=== PATIENT | female | born 1975 | race Caucasian/White ===

== ENCOUNTER → 2022-10-15 08:04 | Outpatient (BNVA) | payer OTHER, SELFPAY | PROVIDERS: PCP Physician Assistant Medical; Visit Provider Internal Medicine Rheumatology | DX: M32.9 Systemic lupus erythematosus, unspecified (principal); M79.7 Fibromyalgia; Z79.60 Long term (current) use of unspecified immunomodulators and immunosuppressants | CPT/HCPCS: 99212 ==

== ENCOUNTER 2022-10-15 08:45 | Outpatient (REF) | payer OTHER, SELFPAY ==
[2022-10-15 10:39] LABS: MANUAL DIFF FLAG NO
[2022-10-15 10:45] LABS: Basophils Percent Auto 0.2 % (0-2); Eosinophils Percent Auto 0.4 % (0-4); Hematocrit 39.5 % (37.0-47.0); Hemoglobin 13.4 g/dl (12.0-16.0); Imm Gran Abs Auto 0.02 X10*3/uL (0.00-0.03); Imm Gran Pct Auto 0.2 % (0.0-0.4); Lymphocytes Absolute Auto 1.6 X10*3/uL (1.2-4.9); Lymphocytes Percent Auto 18.5 % (20-40); Mean Corpuscular HGB Conc 33.9 g/dl (31.0-35.0); Mean Corpuscular Hemoglobin 33.8 pg (27.0-33.0); Mean Corpuscular Volume 99.5 fL (80.0-98.0); Mean Platelet Volume 10.1 fL (9.4-12.3); Monocytes Absolute Auto 0.5 X10*3/uL (0.1-1.2); Monocytes Percent Auto 5.6 % (2-11); Neutrophils Absolute Auto 6.3 x10*3/uL (2.0-8.3); Neutrophils Percent Auto 75.1 % (45-73); Platelet Count 275 X10*3/uL (160-400); Red Blood Count 3.97 X10*6/uL (4.20-5.50); Red Cell Distribution Width 11.9 % (11.0-16.0); White Blood Count 8.4 X10*3/uL (4.8-10.8)
[2022-10-15 10:55] LABS: C Reactive Protein 0.14 mg/dL (< or = 0.50)
[2022-10-15 11:22] LABS: Erythrocyte Sedimentation Rate 7 MM/HR (0-20)
[2022-10-17 17:04] LABS: Anti DNA DS Antibody 5 IU/mL; SM/Ribonucleoprotein Ab <1.0 NEG AI (<1.0 NEG); Smith Protein <1.0 NEG AI (<1.0 NEG)
[2022-10-21 04:44] LABS: Complement C3 80 mg/dL (83-193)
== END 2022-10-15 08:46 | disposition home or self-care (01) ==
LOC: HO.10HDL 08:45
PROVIDERS: Visit Provider Internal Medicine Rheumatology
DX: M32.9 Systemic lupus erythematosus, unspecified (principal); M79.7 Fibromyalgia; Z79.60 Long term (current) use of unspecified immunomodulators and immunosuppressants; Z79.899 Other long term (current) drug therapy
CPT/HCPCS: 36415; 85025; 85652; 86140; 86160; 86225; 86235

== ENCOUNTER 2023-01-13 10:54 | Outpatient (AMB) | payer OTHER, SELFPAY ==
[2023-01-13 10:58] VITALS: BP 120/80; PULSE 81; TEMP 37; O2SAT 98; BMI 27.4
--- NOTE | 2023-01-13 10:58 | MHC.OFFVIS ---
Intake Vital Signs 01/13/23 10:58 Height 5 ft 5 in Weight 164 lb 10.965 oz BMI 27.4 BP 120/80 Blood Pressure Location Lt brachial Position Sitting Pulse 81 Pulse Source Pulse Oximeter Temp 98.6 F Temp Source Skin Pulse Oximetry (%) 98 Oxygen Delivery Method Room Air Intake Visit Reasons: SLE Intake Note: Here for SLE follow up. Sack Keeper Required: No Accompanied by: Significant Other Allergies sulfamethoxazole [From Bactrim] Allergy (Severe, Verified 01/13/23 10:58) Hives trimethoprim [From Bactrim] Allergy (Severe, Verified 01/13/23 10:58) Hives amoxicillin [From Augmentin] Allergy (Intermediate, Verified 01/13/23 10:58) Hives clavulanic acid [From Augmentin] Allergy (Intermediate, Verified 01/13/23 10:58) Hives clindamycin Allergy (Intermediate, Verified 01/13/23 10:58) RASH ALL OVER BODY Medication List - Last Reconciled 01/13/23 by Denys Galarza MD albuterol sulfate 90 mcg/actuation (ProAir HFA) 2 puffs inhalation Q6H PRN alprazolam 0.5 mg PO TID PRN amlodipine 5 mg PO DAILY atorvastatin 10 mg PO BEDTIME azathioprine 150 mg (3 x 50 mg) PO DAILY buspirone 15 mg PO TID desvenlafaxine succinate ER (Pristiq) 100 mg PO DAILY fluticasone propion-salmeterol 250-50 mcg/dose (Wixela Inhub) 1 ea inhalation BID gabapentin One cap twice a day and two at night orally hydroxychloroquine (Plaquenil) 200 mg PO BID lamotrigine 50 mg PO BID levonorgestrel (Mirena) intrauterine metformin ER 500 mg PO DAILY mirtazapine 15 mg PO BEDTIME omeprazole 20 mg PO DAILY HPI HPI Comments History of Present Illness Details The patient presents with her boyfriend for evaluation of her lupus and fibromyalgia. She has been having intermittent pains in the wrists, shoulders, right elbow, and the knees. None of the joints are swollen. Pains tend to migrate and tend to come and go. She does get occasional hives but no persistent rash. She remains on hydroxychloroquine 200 b.i.d., azathioprine 50 mg t.i.d., and as needed ibuprofen [id number]. She is on 300 mg twice a day gabapentin 600 mg at night. She does not think the gabapentin gives any sedation. She also remains on alprazolam, Pristiq, mirtazapine, BuSpar, and lamotrigine from her psychiatrist. Anxiety and depression seem to be stable with current treatment. [facility] Medical History (Updated 01/13/23 @ 11:23 by Denys Galarza MD) Anxiety Cervical radiculopathy Diabetes Dysplasia of cervix Fibromyalgia GERD (gastroesophageal reflux disease) Long-term use of immunosuppressant medication SLE (systemic lupus erythematosus) Tobacco abuse Family History Father HTN (hypertension) Paternal Grandfather HTN (hypertension) Paternal Uncle HTN (hypertension) Social History Alcohol intake: never Patient Tobacco Use Status: Current everyday Tobacco user Review of Systems Const Details: Some fatigue at times. Negative for appetite change, weight change, fever, chills, malaise Eyes Details: Negative for vision change, dry eyes,headaches and dizziness ENT Details: Negative for hearing change, tinnitus, oral ulcer, nose bleeds and oral dryness. Card Details: Negative chest pain, edema and syncope Resp Details: Negative for SOB, cough and wheezing GI Details: Negative indigestion/heartburn, nausea, abdominal pain, bowel changes, diarrhea, constipation and bloody stool. Skin/Breast Details: Occasional hives. Negative for itching, rash, Raynaud's symptoms, sun sensitivity, and skin cancer Psych Details: anxiety, depression stable with current treatment. Manjit/Lymph Details: Negative for excessive bruising or bleeding. Physical Exam Vital Signs: Last Vital Signs Temp 98.6 F 01/13/23 10:58 Pulse 81 01/13/23 10:58 BP 120/80 01/13/23 10:58 Pulse Ox 98 01/13/23 10:58 Oxygen Delivery Method Room Air 01/13/23 10:58 BMI result Body Mass Index 27.4 APPEARANCE: Patient in no acute distress EYES no redness, pupils equal and reactive to light, eyelids normal EARS:? External ear normal, canal clear and tympanic membrane normal. NOSE/SINUS:? Airflow through both nares, no nasal discharge, no bleeding THROAT:? Oral mucosa moist, no ulcerations NECK:? No thyromegaly or masses, no adenopathy, trachea midline. HEART:? Regulrar rhythm, S1-S2 heard, no murmurs, rubs or gallops. LUNG:? Clear to percussion and auscultation ABD:? Normal bowel sounds, no organomegaly, masses or tenderness. EXTREMITIES:? No edema, no calf tenderness, normal peripheral pulses. NEURO:? Oriented and alert x3.? No focal weakness.? Reflexes symmetric.? Gait normal. SKIN:? No inflammatory or neoplastic lesions.? Normal color and turgor JOINT EXAM:?? Cervical Spine:.? Full range of motion with mild pain at the extremes of motion.? There is some mild cervical muscle tenderness. Thoracic Spine:.? No scoliosis.? No tenderness on palpation. Lumbar Spine:.? Alignment normal.? Full range of motion with mild pain at the extremes.? No tenderness. Chest Wall:? No tenderness, swelling, increased warmth or erythema. Hands:.? Normal pain-free range of motion without tenderness, swelling, increased warmth or erythema. Able to make a full fist and has a good top spotter strength. Wrists:? Normal pain-free range of motion with mild tenderness but no she swelling, increased warmth or erythema. Elbows: Left: Normal pain-free range of motion without tenderness, swelling, increased warmth or erythema. Right: Slight pain at full extension. There is moderate lateral epicondylar tenderness but no tenderness or swelling over the joint space. Shoulders:? Full range of motion with slight discomfort at the extremes of motion.? There is some mild trapezial tenderness but no tenderness elsewhere.? No adenopathy, weakness, swelling, increased warmth or erythema. Hips:.? Full range of motion without pain. Hip bursa:.? Mild trochanteric tenderness. Knees: Normal pain-free range of motion with slight medial tenderness; no swelling, increased warmth or erythema.? There is no effusion or crepitation Ankles:? Normal pain-free range of motion with slight tenderness but no swelling, increased warmth or erythema. Feet:? Normal pain-free range of motion with some tenderness in the instep without swelling.? Elsewhere there is no swelling, increased warmth or erythema. Tender points:? Mild tenderness to digital palpation at the? trapezius, second rib, lateral epicondyle, knees, greater trochanter area bilaterally. ? Results Reviewed Results Reviewed: Laboratory Tests 10/15/22 10/15/22 08:50 08:50 C-Reactive Protein 0.14 Double Strand DNA Ab 5 H Complement C3 80 L Complement C4 12 L Laboratory Tests 10/15/22 10/15/22 08:50 08:50 WBC 8.4 Hgb 13.4 Plt Count 275 ESR 7 Lab work from [place]: 10/10/2022: Creatinine 0.73, A1c 5.1, urine microalbumin less than 6.8 Assessment & Plan Assessment & Plan (1) Long-term use of immunosuppressant medication: Code(s): Z79.60 - [employer] (current) use of unspecified immunomodulators and immunosuppressants (2) Fibromyalgia: Code(s): M79.7 - Fibromyalgia (3) SLE (systemic lupus erythematosus): Comment: 2014: arthalgias, rash: pos JADA, anti DNA. low C3, C4. Neg Sjogrens AB, anti CLARE. hydroxychloroquine started ~ 2014 - Eye exam [place] 02/03, 10/05, 09/07, 01/07 Joint pain/rash. Azathioprine added, 2017 Code(s): M32.9 - Systemic lupus erythematosus, unspecified Plan Patient again has some scattered arthralgias without signs of an inflammatory joint disease. She does have hives, this of course could be a manifestation of SLE but it happens independent of that disease process as well. She has many tender points as before so I think much of her pain currently is from fibromyalgia. I encouraged light aerobic activity. We will check CBC, CMP, inflammatory markers, complement levels and anti DNA today. Also we will check urine for protein excretion. The medications will remain the same. She is getting the gabapentin prescribed through her primary doctor and that seems appropriate. I will see her again in April. Coding Level of Care Code Est Pt Level 3 (94603) Diagnoses Long-term use of immunosuppressant medication Z79.60 Fibromyalgia M79.7 SLE (systemic lupus erythematosus) M32.9
== END 2023-01-13 11:25 | disposition home or self-care (01) ==
PROVIDERS: PCP Physician Assistant Medical; Visit Provider Internal Medicine Rheumatology
DX: Z79.60 Long term (current) use of unspecified immunomodulators and immunosuppressants (principal); M79.7 Fibromyalgia; M32.9 Systemic lupus erythematosus, unspecified
CPT/HCPCS: 99213

== ENCOUNTER → 2023-01-13 10:54 | Outpatient (BNVA) | payer OTHER, SELFPAY | PROVIDERS: PCP Physician Assistant Medical; Visit Provider Internal Medicine Rheumatology | DX: M32.9 Systemic lupus erythematosus, unspecified (principal); M79.7 Fibromyalgia; Z79.60 Long term (current) use of unspecified immunomodulators and immunosuppressants | CPT/HCPCS: 99212 ==

== ENCOUNTER 2023-01-13 11:29 | Outpatient (REF) | payer OTHER, SELFPAY ==
[2023-01-13 13:17] LABS: MANUAL DIFF FLAG NO
[2023-01-13 13:22] LABS: Basophils Percent Auto 0.2 % (0-2); Eosinophils Percent Auto 0.4 % (0-4); Hematocrit 40.8 % (37.0-47.0); Imm Gran Abs Auto 0.02 X10*3/uL (0.00-0.03); Imm Gran Pct Auto 0.2 % (0.0-0.4); Mean Corpuscular HGB Conc 34.3 g/dl (31.0-35.0); Mean Corpuscular Hemoglobin 33.8 pg (27.0-33.0); Mean Corpuscular Volume 98.6 fL (80.0-98.0); Monocytes Absolute Auto 0.5 X10*3/uL (0.1-1.2); Monocytes Percent Auto 5.8 % (2-11); Neutrophils Absolute Auto 5.6 x10*3/uL (2.0-8.3); Neutrophils Percent Auto 69.4 % (45-73); Platelet Count 299 X10*3/uL (160-400); Red Blood Count 4.14 X10*6/uL (4.20-5.50); Red Cell Distribution Width 12.3 % (11.0-16.0); White Blood Count 8.1 X10*3/uL (4.8-10.8)
[2023-01-13 13:51] LABS: Alanine Aminotransferase 12 U/L (0-31); Albumin Level 4.2 g/dL (3.5-5.0); Alkaline Phosphatase 49 U/L (39-117); Anion Gap 11 (12-20); Aspartate Amino Transferase 14 U/L (5-31); Bilirubin Total 0.5 mg/dL (0.0-1.0); Blood Urea Nitrogen 6 mg/dL (9-16); C Reactive Protein < 0.10 mg/dL (< or = 0.50); Calcium 9.5 mg/dL (8.4-10.2); Carbon Dioxide 25 mmol/L (22-29); Chloride 107 mmol/L (96-108); Estimated Glomerular Filt Rate > 60; Glucose Random 103 mg/dL (60-115); Potassium 4.2 mmol/L (3.3-5.1); Sodium 139 mmol/L (135-145)
[2023-01-13 14:05] LABS: Erythrocyte Sedimentation Rate 9 MM/HR (0-20)
[2023-01-13 14:36] LABS: Creatinine Urine 28.85 mg/dL; Total Protein Urine Random < 7 mg/dL (<12)
[2023-01-14 14:48] LABS: Complement C3 104 mg/dL (83-193)
[2023-01-15 13:33] LABS: Anti DNA DS Antibody 5 IU/mL
== END 2023-01-13 11:30 | disposition home or self-care (01) ==
LOC: HO.10HDL 11:29
PROVIDERS: Visit Provider Internal Medicine Rheumatology
DX: M32.9 Systemic lupus erythematosus, unspecified (principal); M79.7 Fibromyalgia; Z79.60 Long term (current) use of unspecified immunomodulators and immunosuppressants
CPT/HCPCS: 36415; 80053; 84156; 85025; 85652; 86140; 86160; 86225

== ENCOUNTER 2023-05-06 09:02 | Outpatient (AMB) | payer OTHER, SELFPAY ==
--- NOTE | 2023-05-06 09:08 | A.OFFVIS_ITS ---
Intake Vital Signs 05/06/23 09:09 Height 5 ft 5 in Weight 160 lb 11.472 oz BMI 26.7 BP 110/70 Blood Pressure Location Lt brachial Position Sitting Pulse 86 Pulse Source Pulse Oximeter Temp 97.9 F Temp Source Skin Pulse Oximetry (%) 96 Oxygen Delivery Method Room Air Intake Visit Reasons: SLE Intake Note: Patient last seen 01/13/23, presents today for follow up and test results. c/o worsening joint pains since cold weather. Mobile Application Tester Required: No Accompanied by: Friend Allergies sulfamethoxazole [From Bactrim] Allergy (Severe, Verified 05/06/23 09:09) Hives trimethoprim [From Bactrim] Allergy (Severe, Verified 05/06/23 09:09) Hives amoxicillin [From Augmentin] Allergy (Intermediate, Verified 05/06/23 09:09) Hives clavulanic acid [From Augmentin] Allergy (Intermediate, Verified 05/06/23 09:09) Hives clindamycin Allergy (Intermediate, Verified 05/06/23 09:09) RASH ALL OVER BODY Medication List - Last Reconciled 05/06/23 by Denys Galarza MD albuterol sulfate 90 mcg/actuation (ProAir HFA) 2 puffs inhalation Q6H PRN alprazolam 0.5 mg PO TID PRN amlodipine 5 mg PO DAILY atorvastatin 10 mg PO BEDTIME azathioprine 150 mg (3 x 50 mg) PO DAILY buspirone 15 mg PO TID desvenlafaxine succinate ER (Pristiq) 100 mg PO DAILY fluticasone propion-salmeterol 250-50 mcg/dose (Wixela Inhub) 1 ea inhalation BID gabapentin One cap twice a day and two at night orally hydroxychloroquine (Plaquenil) 200 mg PO BID lamotrigine 50 mg PO BID levonorgestrel (Mirena) intrauterine metformin ER 500 mg PO DAILY mirtazapine 15 mg PO BEDTIME omeprazole 20 mg PO DAILY HPI HPI Comments History of Present Illness Details The patient returns today with her for evaluation of her lupus and fibromyalgia. She remains on hydroxychloroquine 200 mg b.i.d., azathioprine 50 mg t.i.d., and occasional ibuprofen and or acetaminophen. She takes the gabapentin 300 mg capsules twice a day and 2 at night for fibromyalgia. She has been noticing some wrist pain for 2-3 months. This is accompanied by hand paresthesias at night. Occasionally she gets the hand paresthesias in the daytime. There is occasional pain in the fingers and in the knees. Sometimes she has taken prednisone and that seems to help the pains at times. She does not seem to have any other paresthesias currently. There are no problems with oral ulcers, skin rash, chest pain, abdominal pain, or joint swelling. She last had an eye exam to monitor her hydroxychloroquine use back in December. [facility] Medical History (Updated 05/06/23 @ 13:21 by Denys Galarza MD) SLE (systemic lupus erythematosus) Anxiety Diabetes GERD (gastroesophageal reflux disease) Tobacco abuse Cervical radiculopathy Long-term use of immunosuppressant medication Fibromyalgia Dysplasia of cervix Family History Father HTN (hypertension) Paternal Grandfather HTN (hypertension) Paternal Uncle HTN (hypertension) Social History (Updated 05/06/23 @ 09:11 by KAVITA Morales) Alcohol intake: never Patient Tobacco Use Status: Current everyday Tobacco user Cigarettes Per Day: 15 Review of Systems Const Details: Negative for appetite change, weight change, fever, chills, malaise and fatigue Eyes Details: Negative for vision change, dry eyes,headaches and dizziness ENT Details: Negative for hearing change, tinnitus, oral ulcer, nose bleeds and oral dryness. Card Details: Negative chest pain, edema and syncope Resp Details: Negative for SOB, cough and wheezing GI Details: Negative indigestion/heartburn, nausea, abdominal pain, bowel changes, diarrhea, constipation and bloody stool. Skin/Breast Details: Raynaud's symptoms a bit more comonin the colder weather Negative for itching, rash, hives, sun sensitivity, and skin cancer Neuro Details: Hand numbness as noted above. Negative for epilepsy, palsy, stroke, changes in speech, and weakness . Psych Details: anxiety, depression stable at present. Endo Details: Negative for polyuria and polydypsia Manjit/Lymph Details: Negative for excessive bruising or bleeding. Physical Exam Vital Signs: Last Vital Signs Temp 97.9 F 05/06/23 09:09 Pulse 86 05/06/23 09:09 BP 110/70 05/06/23 09:09 Pulse Ox 96 12/20/23 09:09 Oxygen Delivery Method Room Air 05/06/23 09:09 BMI result Body Mass Index 26.7 APPEARANCE: Patient in no acute distress EYES no redness, pupils equal and reactive to light, eyelids normal EARS:? External ear normal, canal clear and tympanic membrane normal. NOSE/SINUS:? Airflow through both nares, no nasal discharge, no bleeding THROAT:? Oral mucosa moist, no ulcerations NECK:? No thyromegaly or masses, no adenopathy, trachea midline. HEART:? Regulrar rhythm, S1-S2 heard, no murmurs, rubs or gallops. LUNG:? Clear to percussion and auscultation ABD:? Normal bowel sounds, no organomegaly, masses or tenderness. EXTREMITIES:? No edema, no calf tenderness, normal peripheral pulses. NEURO:? Oriented and alert x3.? No focal weakness.? Reflexes symmetric.? Gait normal. SKIN:? No inflammatory or neoplastic lesions.? Normal color and turgor JOINT EXAM:?? Cervical Spine:.? Full range of motion with mild pain at the extremes of motion.? There is some mild cervical muscle tenderness. Thoracic Spine:.? No scoliosis.? No tenderness on palpation. Lumbar Spine:.? Alignment normal.? Full range of motion with mild pain at the extremes.? No tenderness. Chest Wall:? No tenderness, swelling, increased warmth or erythema. Hands:.? Normal pain-free range of motion without tenderness, swelling, increased warmth or erythema. There are no objective signs of Raynaud's disease, no sensory loss or thenar atrophy. Wrists:? There is mild pain with the degrees flexion extension with some minimal ventral tenderness without swelling. No redness or warmth. Negative Phalen's and Tinel signs. Elbows: Left: Normal pain-free range of motion without tenderness, swelling, increased warmth or erythema. Right: Slight pain at full extension. There is mild lateral epicondylar tenderness but no tenderness or swelling over the joint space. Shoulders:? Full range of motion with slight discomfort at the extremes of motion.? There is some mild trapezial tenderness but no tenderness elsewhere.? No adenopathy, weakness, swelling, increased warmth or erythema. Hips:.? Full range of motion without pain. Hip bursa:.? Mild trochanteric tenderness. Knees: Normal pain-free range of motion with slight medial tenderness; no swelling, increased warmth or erythema.? There is no effusion or crepitation Ankles:? Normal pain-free range of motion with slight tenderness but no swelling, increased warmth or erythema. Feet:? Normal pain-free range of motion with some tenderness in the instep without swelling.? Elsewhere there is no swelling, increased warmth or erythema. Tender points:? Mild tenderness to digital palpation at the? trapezius, second rib, lateral epicondyle, knees, greater trochanter area bilaterally. ? Results Reviewed Results Reviewed: Laboratory Tests 01/13/23 11:35 WBC 8.1 Hgb 14.0 ESR 9 Creatinine 0.70 C-Reactive Protein < 0.10 Double Strand DNA Ab 5 H Complement C3 104 Complement C4 15 Assessment & Plan Assessment & Plan (1) Long-term use of immunosuppressant medication: Code(s): Z79.60 - prison (current) use of unspecified immunomodulators and immunosuppressants (2) Fibromyalgia: Code(s): M79.7 - Fibromyalgia (3) Numbness in both hands: Code(s): R20.0 - Anesthesia of skin (4) SLE (systemic lupus erythematosus): Comment: 2015: arthalgias, rash: pos JADA, anti DNA. low C3, C4. Neg Sjogrens AB, anti CLARE. hydroxychloroquine started ~ 2014 - Eye exam [place] 02/03, 10/05, 09/07, 01/07 Joint pain/rash. Azathioprine added, 2017 Code(s): M32.9 - Systemic lupus erythematosus, unspecified Plan SLE with some wrist tenderness and hand paresthesias suggestive of carpal tunnel symptoms. Otherwise I do not see any signs of an active synovitis suggesting that her lupus is active. She seems to be tolerating her medications. She last had an eye exam in December so would not be due for another eye exam to monitor the hydroxychloroquine until next summer. We talked about the possible diagnosis of carpal tunnel syndrome causing the hand numbness. At this point it has only been a few months so nerve conduction studies are not likely to be positive. We will give her a prescription for wrist splints to use nightly for the next few months. It is also possible that the tingling episodes are related to the fibromyalgia. Follow-up in 3 months is arranged. We will put in for lab work before that visit to monitor the lupus but the recent blood work looked fine. Orders: Orders Complement C4 Today M32.9 - Systemic lupus erythematosus, unspecified Complete Blood Count Auto Diff Today M32.9 - Systemic lupus erythematosus, unspecified C Reactive Protein Today M32.9 - Systemic lupus erythematosus, unspecified Creatinine Today M32.9 - Systemic lupus erythematosus, unspecified Erythrocyte Sedimentation Rate Today M32.9 - Systemic lupus erythematosus, unspecified Protein Creatinine Ratio, Ur Today M32.9 - Systemic lupus erythematosus, unspecified Complement C3 Today M32.9 - Systemic lupus erythematosus, unspecified Anti DNA DS Antibody Today M32.9 - Systemic lupus erythematosus, unspecified Medications: New arm brace (Wrist Brace) use nightly 2 ea 0RF G56.03 - Carpal tunnel syndrome, bilateral upper limbs Coding Level of Care Code Est Pt Level 4 (13271) Diagnoses Long-term use of immunosuppressant medication Z79.60 Fibromyalgia M79.7 Numbness in both hands R20.0 SLE (systemic lupus erythematosus) M32.9
[2023-05-06 09:09] VITALS: BP 110/70; PULSE 86; TEMP 36.6; O2SAT 96; BMI 26.7
== END 2023-05-06 09:49 | disposition home or self-care (01) ==
PROVIDERS: PCP Physician Assistant Medical; Visit Provider Internal Medicine Rheumatology
DX: Z79.60 Long term (current) use of unspecified immunomodulators and immunosuppressants (principal); M79.7 Fibromyalgia; R20.0 Anesthesia of skin; M32.9 Systemic lupus erythematosus, unspecified
CPT/HCPCS: 99214

== ENCOUNTER 2023-05-06 09:02 | Outpatient (REF) | payer OTHER, SELFPAY ==
[2023-05-06 10:13] LABS: MANUAL DIFF FLAG NO
[2023-05-06 10:20] LABS: Basophils Percent Auto 0.3 % (0-2); Eosinophils Percent Auto 0.3 % (0-4); Hematocrit 40.2 % (37.0-47.0); Hemoglobin 13.9 g/dl (12.0-16.0); Imm Gran Abs Auto 0.02 X10*3/uL (0.00-0.03); Imm Gran Pct Auto 0.3 % (0.0-0.4); Lymphocytes Absolute Auto 1.5 X10*3/uL (1.2-4.9); Mean Corpuscular HGB Conc 34.6 g/dl (31.0-35.0); Mean Corpuscular Hemoglobin 34.8 pg (27.0-33.0); Mean Corpuscular Volume 100.5 fL (80.0-98.0); Mean Platelet Volume 9.3 fL (9.4-12.3); Monocytes Absolute Auto 0.3 X10*3/uL (0.1-1.2); Monocytes Percent Auto 4.5 % (2-11); Neutrophils Absolute Auto 4.8 x10*3/uL (2.0-8.3); Neutrophils Percent Auto 72.6 % (45-73); Platelet Count 273 X10*3/uL (160-400); Red Cell Distribution Width 12.1 % (11.0-16.0); White Blood Count 6.6 X10*3/uL (4.8-10.8)
[2023-05-06 11:02] LABS: C Reactive Protein < 0.10 mg/dL (< or = 0.50); Estimated Glomerular Filt Rate > 60
[2023-05-06 11:06] LABS: Erythrocyte Sedimentation Rate 7 MM/HR (0-20)
[2023-05-06 11:09] LABS: Creatinine Urine 104.09 mg/dL; Total Protein Urine Random < 7 mg/dL (<12)
[2023-05-08 14:08] LABS: Anti DNA DS Antibody 4 IU/mL
[2023-05-14 06:33] LABS: Complement C3 104 mg/dL (83-193)
== END 2023-05-06 09:03 | disposition home or self-care (01) ==
LOC: HO.LAB 09:02
PROVIDERS: PCP Physician Assistant Medical; Visit Provider Internal Medicine Rheumatology
DX: M32.9 Systemic lupus erythematosus, unspecified (principal); M79.7 Fibromyalgia; R20.0 Anesthesia of skin; Z79.60 Long term (current) use of unspecified immunomodulators and immunosuppressants
CPT/HCPCS: 36415; 82565; 82570; 84156; 85025; 85652; 86140; 86160; 86225; 99212

== ENCOUNTER 2023-11-13 09:04 | Outpatient (AMB) | payer OTHER, SELFPAY ==
--- NOTE | 2023-11-13 09:13 | A.OFFVIS_ITS ---
Vital Signs 11/13/23 09:22 Height 5 ft 5 in Weight 163 lb 2.273 oz BMI 27.1 BP 118/68 Blood Pressure Location Rt brachial Position Sitting Pulse 78 Pulse Source Pulse Oximeter Pulse Oximetry (%) 98 Oxygen Delivery Method Room Air Intake Visit Reasons: SLE/CM Intake Note: Pt presents today for SLE follow up. Reports flare up, different joints. Needs meds refilled. Garage Manager Required: No Accompanied by: Significant Other Allergies sulfamethoxazole [From Bactrim] Allergy (Severe, Verified 11/13/23 09:21) Hives trimethoprim [From Bactrim] Allergy (Severe, Verified 11/13/23 09:21) Hives amoxicillin [From Augmentin] Allergy (Intermediate, Verified 11/13/23 09:21) Hives clavulanic acid [From Augmentin] Allergy (Intermediate, Verified 11/13/23 09:21) Hives clindamycin Allergy (Intermediate, Verified 11/13/23 09:21) RASH ALL OVER BODY Medication List - Last Reconciled 11/13/23 by Gloria Alvarado MD albuterol sulfate 90 mcg/actuation (ProAir HFA) 2 puffs inhalation Q6H PRN alprazolam 0.5 mg PO TID PRN amlodipine 5 mg PO DAILY arm brace (Wrist Brace) use nightly atorvastatin 10 mg PO BEDTIME azathioprine 150 mg (3 x 50 mg) PO DAILY buspirone 15 mg PO TID desvenlafaxine succinate ER (Pristiq) 100 mg PO DAILY fluticasone propion-salmeterol 250-50 mcg/dose (Wixela Inhub) 1 ea inhalation BID gabapentin One cap twice a day and two at night orally hydroxychloroquine (Plaquenil) 200 mg PO BID lamotrigine 50 mg PO BID levonorgestrel (Mirena) intrauterine metformin ER 500 mg PO DAILY mirtazapine 15 mg PO BEDTIME omeprazole 20 mg PO DAILY prednisone Take 2 tabs daily for 1 week then 1 tab daily for 1 week then stop HPI Comments Details: 48-year-old female with SLE returns for follow-up. She remains on hydroxychloroquine 20 mg Twice daily, azathioprine 150 mg daily, gabapentin 300 mg 4 tabs daily. She states that over the last month she has been having more joint pain especially her hands, fingers, ankles. She continues to have inter mittent episodes of tingling and numbness of the fingers, those are improved with a wrist splint. She has also been having pain on the outer aspect of both her hips. Most recent history by Dr. Galarza 04/2023: The patient returns today with her for evaluation of her lupus and fibromyalgia. She remains on hydroxychloroquine 200 mg b.i.d., azathioprine 50 mg t.i.d., and occasional ibup rofen and or acetaminophen. She takes the gabapentin 300 mg capsules twice a day and 2 at night for fibromyalgia. She has been noticing some wrist pain for 2-3 months. This is accompanied by hand paresthesias at night. Occasionally she gets the hand paresthesias in the daytime. There is occasional pain in the fingers and in the knees. Sometimes she has taken prednisone and that seems to help the pains at times. She does not seem to have any other paresthesias currently. There are no problems with oral ulcers, skin rash, chest pain, abdominal pain, or joint swelling. She last had an eye exam to monitor her hydroxychloroquine use back in December. [facility] Medical History (Updated 11/13/23 @ 09:58 by Gloria Alvarado MD) SLE (systemic lupus erythematosus) Anxiety Diabetes GERD (gastroesophageal reflux disease) Tobacco abuse Cervical radiculopathy Long-term use of immunosuppressant medication Fibromyalgia Dysplasia of cervix Family History Father HTN (hypertension) Paternal Grandfather HTN (hypertension) Paternal Uncle HTN (hypertension) Social History (Updated 11/13/23 @ 09:36 by Gloria Alvarado MD) Alcohol intake: never Patient Tobacco Use Status: Current everyday Tobacco user Cigarettes Per Day: 15 Current occupational status: previously employed Current occupation: [employer] Female Reproductive History Menstrual Total pregnancies: 3 Full term: 3 Review of Systems Musc Reports arthralgias, Reports numbness, Reports stiffness and Reports tingling Neuro Reports numbness and Reports tingling Physical Exam Vital Signs: Last Vital Signs Pulse 78 11/13/23 09:22 BP 118/68 11/13/23 09:22 Pulse Ox 98 11/13/23 09:22 Oxygen Delivery Method Room Air 11/13/23 09:22 BMI result Body Mass Index 27.1 Const General: cooperative, healthy appearing and comfortable Nutritional Appearance: overweight Orientation/consciousness: patient oriented x3 Limitations: no limitations HEENT Head: Yes normocephalic and Yes atraumatic Mouth: moist mucous membranes Resp Effort & Inspection: normal respiratory effort and able to speak in complete sentences Auscultation: clear to auscultation bilaterally Cardio Rate: regular rate Rhythm: regular rhythm GI Palpation (GI): Soft to palpation and nontender Skin General skin exam: no rashes or lesions noted Neuro General: patient oriented x3 Extrem Other: No grossly swollen or tender joints on exam Negative Tinel test bilaterally Positive Durkan's test on the right Bilateral trochanteric bursa area tenderness With negative Madelaine's test Assessment & Plan Assessment & Plan (1) SLE (systemic lupus erythematosus): Comment: 2014: arthalgias, rash: pos JADA, anti DNA. low C3, C4. Neg Sjogrens AB, anti CLARE. hydroxychloroquine started ~ 2014 - Eye exam OK 02/03, 10/05, 09/07, 01/07 Joint pain/rash. Azathioprine added, 2017 Code(s): M32.9 - Systemic lupus erythematosus, unspecified Category: Medical Qualifiers: Systemic lupus erythematosus type: unspecified Systemic lupus erythematosus organ involvement: other Qualified Code(s): M32.19 - Other organ or system involvement in systemic lupus erythematosus Plan: This is a 48-year-old female with SLE who presents for follow-up. This is her 1st visit with me. She used to follow-up with Dr. Galarza. She is on hydroxychloroquine 200 mg Twice daily, azathioprine 150 mg daily. States that she has been having up of joint pains affecting multiple joints. No significantly swollen joints on exam. Start low-dose prednisone taper. 5 mg daily for 1 week then 2.5 mg daily for 1 week then stop Continue current meds otherwise as prescribed Labs today and before next visit in 4 months (2) Long-term use of immunosuppressant medication: Code(s): Z79.60 - care home (current) use of unspecified immunomodulators and immunosuppressants Category: Medical Plan: Monitor safety labs for azathioprine (3) Long-term use of hydroxychloroquine: Comment: Eye exam OK 02/03, 10/05, 09/07, 01/07 Code(s): Z79.899 - Other terminal operations supervisor (current) drug therapy Category: Medical Plan: Follow-up regularly with tractor driver teamster (4) Fibromyalgia: Code(s): M79.7 - Fibromyalgia Category: Medical Plan: Stable on gabapentin 600 mg Twice daily (5) Numbness in both hands: Code(s): R20.0 - Anesthesia of skin Category: Medical Plan: Improving with wrist splint. Will check bilateral upper extremity EMG/NCV to evaluate for carpal tunnel syndrome (6) Greater trochanteric bursitis of both hips: Code(s): M70.61 - Trochanteric bursitis, right hip; M70.62 - Trochanteric bursitis, left hip Category: Medical Plan: I provided patient with a printout of home exercises. If no improvement, can consider a steroid injection. Plan I spent 50 minutes reviewing patient's chart, reviewing old records from [place], evaluating patient, ordering diagnostic workup, counseling patient and documenting in the chart Orders: Orders Anti DNA DS Antibody Today M3.9 - Systemic lupus erythematosus, unspecified Complement C4 Today M32.9 - Systemic lupus erythematosus, unspecified C Reactive Protein Today M32.9 - Systemic lupus erythematosus, unspecified DNA Double Stranded-Crithidia Today M32.9 - Systemic lupus erythematosus, unspecified Erythrocyte Sedimentation Rate Today M32.9 - Systemic lupus erythematosus, unspecified Protein Creatinine Ratio, Ur Today M32.9 - Systemic lupus erythematosus, unspecified Complete Blood Count Auto Diff Today M32.9 - Systemic lupus erythematosus, unspecified Comprehensive Met. Panel Today M3.9 - Systemic lupus erythematosus, unspecified T Spot TB Today Z11.7 - Encounter for testing for latent tuberculosis infection Complete Blood Count Auto Diff 4 Months M32.9 - Systemic lupus erythematosus, unspecified C Reactive Protein 4 Months M32.9 - Systemic lupus erythematosus, unspecified Erythrocyte Sedimentation Rate 4 Months M32.9 - Systemic lupus erythematosus, unspecified Complement C3 4 Months M32.9 - Systemic lupus erythematosus, unspecified Complement C4 4 Months M32.9 - Systemic lupus erythematosus, unspecified Protein Creatinine Ratio, Ur 4 Months M32.9 - Systemic lupus erythematosus, u nspecified NE electromyogram (EMG) Today R20.0 - Anesthesia of skin Complement C3 Today M32.9 - Systemic lupus erythematosus, unspecified UA w Microscopic Today M32.9 - Systemic lupus erythematosus, unspecified Hepatitis A,B,C Profile Today Z11.59 - Encounter for screening for other viral diseases Comprehensive Met. Panel 4 Months M32.9 - Systemic lupus erythematosus, unspecified Anti DNA DS Antibody 4 Months M32.9 - Systemic lupus erythematosus, unspecified UA w Microscopic 4 Months M32.9 - Systemic lupus erythematosus, unspecified Medications: New hydroxychloroquine (Plaquenil) 200 mg PO BID 180 tabs 1RF prednisone Take 2 tabs daily for 1 week then 1 tab daily for 1 week then stop 21 tabs 0RF Refilled azathioprine 150 mg (3 x 50 mg) PO DAILY 270 tabs 1RF M32.9 - Systemic lupus erythematosus, unspecified gabapentin One cap twice a day and two at night orally 120 caps 5RF M79.7 - Fibromyalgia Coding Level of Care Code Est Pt Level 5 (64190) Diagnoses Systemic lupus erythematosus with other organ involvement, unspecified SLE type M32.19 Systemic lupus erythematosus type: unspecified Systemic lupus erythematosus organ involvement: other Long-term use of immunosuppressant medication Z79.60 Long-term use of hydroxychloroquine Z79.899 Fibromyalgia M79.7 Numbness in both hands R20.0 Greater trochanteric bursitis of both hips M70.61; M70.62
[2023-11-13 09:22] VITALS: BP 118/68; PULSE 78; O2SAT 98; BMI 27.1
== END 2023-11-13 09:47 | disposition home or self-care (01) ==
PROVIDERS: PCP Physician Assistant Medical; Visit Provider Student in an Organized Health Care Education/Training Program
DX: M32.19 Other organ or system involvement in systemic lupus erythematosus (principal); Z79.60 Long term (current) use of unspecified immunomodulators and immunosuppressants; Z79.899 Other long term (current) drug therapy; M79.7 Fibromyalgia; R20.0 Anesthesia of skin; M70.61 Trochanteric bursitis, right hip; M70.62 Trochanteric bursitis, left hip
CPT/HCPCS: 99215

== ENCOUNTER → 2023-11-13 09:04 | Outpatient (BNVA) | payer OTHER, SELFPAY | PROVIDERS: PCP Physician Assistant Medical; Visit Provider Student in an Organized Health Care Education/Training Program | DX: M32.19 Other organ or system involvement in systemic lupus erythematosus (principal); M79.7 Fibromyalgia; M70.61 Trochanteric bursitis, right hip; M70.62 Trochanteric bursitis, left hip; R20.0 Anesthesia of skin; Z79.60 Long term (current) use of unspecified immunomodulators and immunosuppressants; Z79.899 Other long term (current) drug therapy | CPT/HCPCS: 99212 ==

== ENCOUNTER 2023-11-13 09:51 | Outpatient (REF) | payer OTHER, SELFPAY ==
[2023-11-13 13:38] LABS: Appearance Urine Clear; Color Urine Yellow; Glucose Urine UA Negative (Negative); Leukocyte Esterase Urine Negative (Negative); Nitrite Urine Negative (Negative); PH 6.5 (5.0-9.0); Urine Blood Negative (Negative); Urine Ketones Negative (Negative); Urine Protein Negative (Neg-Trace)
[2023-11-13 13:39] LABS: MANUAL DIFF FLAG NO
[2023-11-13 13:43] LABS: Bacteria Urine None Seen (None Seen); Hyaline Casts Urine 0-2 /LPF (0-2); RBC Urine 0-2 /HPF (0-2); Squamous Epithelial Cell Urine 0-2 /HPF (0-2); WBC Urine 0-5 /HPF (0-5)
[2023-11-13 13:44] LABS: Basophils Percent Auto 0.3 % (0-2); Eosinophils Absolute Auto 0.1 X10*3/uL (0.0-0.4); Eosinophils Percent Auto 0.8 % (0-4); Hematocrit 43.8 % (37.0-47.0); Hemoglobin 15.5 g/dl (12.0-16.0); Imm Gran Abs Auto 0.03 X10*3/uL (0.00-0.03); Imm Gran Pct Auto 0.4 % (0.0-0.4); Lymphocytes Absolute Auto 1.5 X10*3/uL (1.2-4.9); Lymphocytes Percent Auto 19.8 % (20-40); Mean Corpuscular HGB Conc 35.4 g/dl (31.0-35.0); Mean Corpuscular Hemoglobin 35.5 pg (27.0-33.0); Mean Corpuscular Volume 100.2 fL (80.0-98.0); Mean Platelet Volume 9.6 fL (9.4-12.3); Monocytes Absolute Auto 0.4 X10*3/uL (0.1-1.2); Monocytes Percent Auto 5.6 % (2-11); Neutrophils Absolute Auto 5.5 x10*3/uL (2.0-8.3); Neutrophils Percent Auto 73.1 % (45-73); Platelet Count 303 X10*3/uL (160-400); Red Blood Count 4.37 X10*6/uL (4.20-5.50); Red Cell Distribution Width 12.1 % (11.0-16.0); White Blood Count 7.5 X10*3/uL (4.8-10.8)
[2023-11-13 14:31] LABS: Erythrocyte Sedimentation Rate 7 MM/HR (0-20)
[2023-11-13 14:37] LABS: Alanine Aminotransferase 21 U/L (0-31); Albumin Level 4.4 g/dL (3.5-5.0); Alkaline Phosphatase 66 U/L (39-117); Anion Gap 10 (12-20); Aspartate Amino Transferase 17 U/L (5-31); Bilirubin Total 0.5 mg/dL (0.0-1.0); Blood Urea Nitrogen 10 mg/dL (9-16); C Reactive Protein 0.19 mg/dL (< or = 0.50); Calcium 9.4 mg/dL (8.4-10.2); Carbon Dioxide 28 mmol/L (22-29); Chloride 104 mmol/L (96-108); Estimated Glomerular Filt Rate > 60; Glucose Random 116 mg/dL (60-115); Potassium 4.3 mmol/L (3.3-5.1); Sodium 138 mmol/L (135-145); Total Protein 7.5 g/dL (6.5-8.0)
[2023-11-13 14:41] LABS: Creatinine Urine 38.37 mg/dL; Total Protein Urine Random < 7 mg/dL (<12)
[2023-11-13 14:59] LABS: HBS Num1 0.53 mIU/mL (0-7.99); HBc Num1 0.14 S/CO (0.00-0.79); HBsAGNum1 0.37 S/CO (0.00-0.99); Hepatitis B Core Antibody Nonreactive (Nonreactive); Hepatitis B Surface Antigen Negative (Negative); ~HepC Num1 0.12 S/CO (0.00-0.79); ~Hepatitis A Antibody IgM Nonreactive (Nonreactive); ~Hepatitis B Surface Antibody NONREACTIVE (Nonreactive); ~Hepatitis C Antibody Nonreactive (Nonreactive)
[2023-11-15 22:23] LABS: TS Negative Control Passed; TS Panel A 0; TS Panel B 0; TS Positive Control Passed; TSpotTB Negative (Negative)
[2023-11-16 09:39] LABS: Complement C3 116 mg/dL (83-193)
[2023-11-17 20:58] LABS: Anti DNA DS Antibody 5 IU/mL
[2023-11-27 14:48] LABS: DNAds, Crithidia Antibody Positive (Negative)
== END 2023-11-13 09:52 | disposition home or self-care (01) ==
LOC: HO.10HDL 09:51
PROVIDERS: Visit Provider Student in an Organized Health Care Education/Training Program
DX: M32.9 Systemic lupus erythematosus, unspecified (principal); R20.0 Anesthesia of skin; Z11.59 Encounter for screening for other viral diseases; Z11.7 Encounter for testing for latent tuberculosis infection; Z72.89 Other problems related to lifestyle
CPT/HCPCS: 36415; 80053; 81001; 82570; 84156; 85025; 85652; 86140; 86160; 86225; 86255; 86481; 86704; 86706; 86709; 86803; 87340

== ENCOUNTER 2025-01-03 10:05 | Outpatient (REF) | payer OTHER, SELFPAY ==
[2025-01-03 13:04] LABS: MANUAL DIFF FLAG NO
[2025-01-03 13:26] LABS: Hematocrit 41.5 % (37.0-47.0); Hemoglobin 14.0 g/dl (12.0-16.0); Imm Gran Abs Auto 0.03 X10*3/uL (0.00-0.03); Imm Gran Pct Auto 0.3 % (0.0-0.4); Lymphocytes Absolute Auto 2.3 X10*3/uL (1.2-4.9); Mean Corpuscular HGB Conc 33.7 g/dl (31.0-35.0); Mean Corpuscular Hemoglobin 33.2 pg (27.0-33.0); Mean Corpuscular Volume 98.3 fL (80.0-98.0); NRBC Abs Auto 0.000 X10*3/uL (0.0-0.012); NRBC Pct Auto 0.0 /100WBC (0.0-0.2); Platelet Count 317 X10*3/uL (160-400); Red Blood Count 4.22 X10*6/uL (4.20-5.50); White Blood Count 9.4 X10*3/uL (4.8-10.8)
[2025-01-03 13:28] LABS: Appearance Urine Cloudy; Glucose Urine UA Negative (Negative); PH >= 9.0 (5.0-9.0); Specific Gravity - Urine 1.020 (1.005-1.025); UMIC TRIGGER UA YES
[2025-01-03 13:56] LABS: Alanine Aminotransferase 18 U/L (0-31); Albumin Level 4.4 g/dL (3.5-5.0); Alkaline Phosphatase 69 U/L (39-117); Anion Gap 12 (12-20); Aspartate Amino Transferase 23 U/L (5-31); Blood Urea Nitrogen 10 mg/dL (9-16); Calcium 9.7 mg/dL (8.4-10.2); Carbon Dioxide 29 mmol/L (22-29); Chloride 103 mmol/L (96-108); Estimated Glomerular Filt Rate > 60; Potassium 4.3 mmol/L (3.3-5.1); Sodium 140 mmol/L (135-145); Total Protein 7.3 g/dL (6.5-8.0)
[2025-01-03 14:02] LABS: Total Protein Urine Random < 7 mg/dL (<12)
== END 2025-01-03 10:06 | disposition home or self-care (01) ==
LOC: HO.HKASLDS 10:05
PROVIDERS: PCP Physician Assistant Medical; Visit Provider Student in an Organized Health Care Education/Training Program
DX: M32.19 Other organ or system involvement in systemic lupus erythematosus (principal); M70.61 Trochanteric bursitis, right hip; M70.62 Trochanteric bursitis, left hip; Z51.81 Encounter for therapeutic drug level monitoring; Z79.624 Long term (current) use of inhibitors of nucleotide synthesis; Z79.52 Long term (current) use of systemic steroids; Z79.899 Other long term (current) drug therapy
CPT/HCPCS: 20610; 36415; 80053; 81001; 82570; 84156; 85025; 85652; 86140; 86160; 86225; 99212; J2003; J3300

== ENCOUNTER 2025-01-03 10:05 | Outpatient (AMB) | payer OTHER, SELFPAY ==
[2025-01-03 10:08] VITALS: BP 132/66; PULSE 81; O2SAT 97; BMI 28.6
--- NOTE | 2025-01-03 10:08 | A.OFFVIS_ITS ---
Vital Signs 01/03/25 10:08 Height 5 ft 5 in Weight 172 lb BMI 28.6 BP 132/66 Blood Pressure Location Lt brachial Position Sitting Pulse 81 Pulse Source Pulse Oximeter Pulse Oximetry (%) 97 Oxygen Delivery Method Room Air Intake Visit Reasons: SLE Intake Note: Patient presents for Lupus follow up. Accompanied by: Significant Other Allergies sulfamethoxazole (From Bactrim) Allergy (Severe, Verified 01/03/25 10:12) Hives trimethoprim (From Bactrim) Allergy (Severe, Verified 01/03/25 10:12) Hives amoxicillin (From Augmentin) Allergy (Intermediate, Verified 01/03/25 10:12) Hives clavulanic acid (From Augmentin) Allergy (Intermediate, Verified 01/03/25 10:12) Hives clindamycin Allergy (Intermediate, Verified 01/03/25 10:12) RASH ALL OVER BODY Medication List - Last Reconciled 01/03/25 by Brittanie Ortiz MD albuterol sulfate 90 mcg/actuation (ProAir HFA) 2 puffs inhalation Q6H PRN alprazolam 0.5 mg PO TID PRN amlodipine 5 mg PO DAILY arm brace (Wrist Brace) use nightly atorvastatin 10 mg PO BEDTIME azathioprine 150 mg (3 x 50 mg) PO DAILY buspirone 15 mg PO TID desvenlafaxine succinate ER (Pristiq) 100 mg PO DAILY fluticasone propion-salmeterol 250-50 mcg/dose (Wixela Inhub) 1 ea inhalation BID gabapentin One cap twice a day and two at night orally hydroxychloroquine 200 mg PO BID lamotrigine 50 mg PO BID levonorgestrel (Mirena) intrauterine metformin ER 500 mg PO DAILY mirtazapine 15 mg PO BEDTIME omeprazole 20 mg PO DAILY prednisone Take 2 tabs daily for 1 week then 1 tab daily for 1 week then stop HPI Comments Details: Patient is a 49 y.o. female with asthma, hypertension, hyperlipidemia, diabetes, anxiety, lupus and fibromyalgia here today for follow up Interval History: Patient last seen 11/13/[address] Alvarado - On azathioprine 150mg daily, Hydroxychloroquine 200mg bid, gabapentin 300mg qid - Complaining of more joint pain: hands, fingers, ankles - Also c/o outer hip pain - Given prednisone taper - Exercises given for greater trochnateric bursitis Today, - On azathioprine 150mg daily, Hydroxychloroquine 200mg bid, gabapentin 300mg qid - Prednisone taper improved her sx and this lasted for more than a month - Exercises did not help, still c/o bilateral outer hip pain Rheumatologic History: SLE 2014: arthalgias, rash: pos JADA, anti DNA. low C3, C4. Neg Sjogrens AB, anti CLARE. hydroxychloroquine started ~ 2014 - Eye exam OK 02/03, 10/05, 09/07, 01/07 Joint pain/rash. Azathioprine added, 2017 Current Rheumatology Medication(s): Azathioprine 150mg daily Hydroxychloroquine 200mg bid Gabapentin 300mg qid [facility] Medical History (Updated 11/13/23 @ 09:58 by Gloria Alvarado MD) SLE (systemic lupus erythematosus) Anxiety Diabetes GERD (gastroesophageal reflux disease) Tobacco abuse Cervical radiculopathy Long-term use of immunosuppressant medication Fibromyalgia Dysplasia of cervix Family History Father HTN (hypertension) Paternal Grandfather HTN (hypertension) Paternal Uncle HTN (hypertension) Social History (Updated 11/13/23 @ 09:36 by Gloria Alvarado MD) Alcohol intake: never Patient Tobacco Use Status: Current everyday Tobacco user Cigarettes Per Day: 15 Current occupational status: previously employed Current occupation: HARVEST WORKER [employer] Review of Systems Const Details: Review of Systems Constitutional: Denies fever, chills, weight loss ENT: Denies vision changes, eye pain or eye redness, dental caries, dry mouth GI: Denies nausea, vomiting, diarrhea, abdominal pain, change in BM Pulm: Denies SOB, BRIZUELA, hemoptysis, wheezing Cards: Denies chest pain, palpitations Skin: Denies Raynaud's, rash, nail changes, photosensitivity, CARPET CLEANING TECHNICIAN: Denies headaches, weakness, paresthesias, recurrent falls MSK: as per HPI All other systems reviewed and are unremarkable except noted above Physical Exam Exam Exam: Vital signs reviewed Physical Examination CONSTITUITIONAL Patient alert and cooperative. Well appearing and in no apparent painful distress HEENT Conjunctiva and sclera clear. No lymphadenopathy. MSK Hands * Right Hand: Able to make a fist. No swelling or tenderness to palpation of these joints. * Left Hand: Able to make a fist. No swelling or tenderness to palpation of thes e joints. * Herbedens nodes noted bilaterally Wrists * Right Wrist: Full ROM. 70 degrees of wrist flexion, 80 degrees of wrist extension. No swelling or TTP * Left Wrist: Full ROM. 70 degrees of wrist flexion, 80 degrees of wrist extension. No swelling or TTP Elbows * Right Elbow: Full ROM. No swelling or TTP. No TTP of the medial and lateral epicondyles * Left Elbow: Full ROM. No swelling or TTP. No TTP of the medial and lateral epicondyles Shoulders * Right shoulder: Full ROM. No swelling noted. No TTP of the AC joint, subacromial bursa or posterior shoulder * Left shoulder: Full ROM. No swelling noted. No TTP of the AC joint, subacromial bursa or posterior shoulder Hip bursa: Tenderness to palpation bilaterally Knees * Right knee: Full ROM. No swelling noted. No TTP of the knee joint lie or pes anserine bursa * Left knee: Full ROM. No swelling noted. No TTP of the knee joint lie or pes anserine bursa. Ankles * Right ankle: Good ankle dorsiflexion and plantar flexion. No swelling. No TTP of the ankle joint * Left ankle: Good ankle dorsiflexion and plantar flexion. No swelling. No TTP of the ankle joint Feet * Right foot: Negative squeeze test * Left foot: Negative squeeze test Tender points? * No tenderness to palpation of the bilateral trapezius, supraspinatus, anterior costochondral junctions, bilateral suboccipital muscle insertions SKIN No rashes Vital Signs: Last Vital Signs Pulse 81 01/03/25 10:08 BP 132/66 01/03/25 10:08 Pulse Ox 97 01/03/25 10:08 Oxygen Delivery Method Room Air 01/03/25 10:08 BMI result Body Mass Index 28.6 Office Procedures AMB Joint Injection/Aspiration Joint Injection/Aspiration Details: Procedure was explained to the patient and informed consent was obtained. ? Risks associated with the procedure were discussed with the patient including but not limited to bleeding, infection, drug reactions and reactions to the topical anesthetic. Patient made aware of signs to look out for infectious complications. The area of interest was identified and confirmed with patient. ?This was s ubsequently cleaned with chlorhexidine x 2. ? The area was then anesthetized using ethyl chloride spray. 40 mg Kenalog with 1 cc 1% lidocaine was injected without issue. ?Minimal to no bleeding. ?Patient tolerated procedure. Primary Site: other (left trochanteric bursa) Prep: site was prepped using aseptic technique and ethochloride spray was applied Injected: 40 mg of, Kenalog, with 1 mL of and 1% plain lidocaine Procedure: The patient tolerated the procedure well Coding 13995 - Glenohumeral/Tronchanteric Bursa/Intraarticular Procedure code (CPT) selection complete AMB Joint Injection/Aspiration Joint Injection/Aspiration Details: Procedure was explained to the patient and informed consent was obtained. ? Risks associated with the procedure were discussed with the patient including but not limited to bleeding, infection, drug reactions and reactions to the topical anesthetic. Patient made aware of signs to look out for infectious complications. The area of interest was identified and confirmed with patient. ?This was subsequently cleaned with chlorhexidine x 2. ? The area was then anesthetized using ethyl chloride spray. 40 mg Kenalog with 1 cc 1% lidocaine was injected without issue. ?Minimal to no bleeding. ?Patient tolerated procedure. Primary Site: other (right greater trochanteric bursa) Prep: site was prepped using aseptic technique and ethochloride spray was applied Injected: 40 mg of, Kenalog, with 1 mL of and 1% plain lidocaine Procedure: The patient tolerated the procedure well Coding 06017 - Glenohumeral/Tronchanteric Bursa/Intraarticular Procedure code (CPT) selection complete Office Meds lidocaine (PF) 10 mg/mL (1 %) injection solution Performing Provider: Brittanie Ortiz MD Performing Location: [facility] Administered by: Brittanie Ortiz MD on 01/03/25 12:44 Dose Route Admin Location Dispensed Lot Number Expiration Date [facility] [employer] 1 mL Infiltration left trochanteric bursa 1 mL Total Dispensed Waste 1 mL 0 % Kenalog 40 mg/mL suspension for injection Performing Provider: Brittanie Ortiz MD Performing Location: [facility] Administered by: Brittanie Ortiz MD on 01/03/25 12:44 Dose Route Admin Location Dispensed Lot Number Expiration Date [facility] [employer] 40 mg intrabursal left trochanteric bursa 1 mL Total Dispensed Waste 1 mL 0 % lidocaine (PF) 10 mg/mL (1 %) injection solution Performing Provider: Brittanie Ortiz MD Performing Location: [facility] Administered by: Nohemi Buchanan RN on 01/03/25 11:10 Dose Route Admin Location Dispensed Lot Number Expiration Date [employer] 1 mL Infiltration right greater trochanter 2 mL [id number] 10/15/26 6 3323-492-04 FRESENIUS KABI 1 mL Infiltration 2 mL [id number] 10/15/26 73067-423-58 PARAG NIUS KABI Total Dispensed Waste 2 mL 0 % Kenalog 40 mg/mL suspension for injection Performing Provider: Brittanie Ortiz MD Performing Location: [facility] Administered by: Nohemi Buchanan RN on 01/03/25 11:10 Dose Route Admin Location Dispensed Lot Number Expiration Date [place] [employer] 40 mg intrabursal right greater trochanter 1 mL [id number] 04/16/26 [phone] HIKMA PHARMACEU 40 mg intrabursal 1 mL [id number] 04/16/26 2222-3963-55 HIKMA PHARMACEU Total Dispensed Waste 2 mL 0 % Results Reviewed Results Reviewed: Laboratory Tests 11/13/23 09:55 WBC 7.5 RBC 4.37 Hgb 15.5 Hct 43.8 Plt Count 303 ESR 7 Sodium 138 Potassium 4.3 Chloride 104 Carbon Dioxide 28 BUN 10 Creatinine 0.76 AST 17 ALT 21 C-Reactive Protein 0.19 Laboratory Tests 11/13/23 09:55 Double Strand DNA Ab 5 H Anti-ds DNA Titer (Crith) 1:160 H Anti-ds DNA (Crithidia) Positive A Complement C3 116 Complement C4 15 Laboratory Tests 11/13/23 09:55 Hepatitis A IgM Ab Nonreactive Hep Bs Antigen Negative Hep Bs Antibody NONREACTIVE Hep B Core Total Ab Nonreactive Hepatitis C Ab (EIA) Nonreactive TB Test (T-Spot) Com Negative Assessment & Plan Assessment & Plan (1) SLE (systemic lupus erythematosus): Comment: 2015: arthalgias, rash: pos JADA, anti DNA. low C3, C4. Neg Sjogrens AB, anti CLARE. hydroxychloroquine started ~ 2014 - Eye exam OK 02/03, 10/05, 09/07, 01/07 Joint pain/rash. Azathioprine added, 2017 Code(s): M32.9 - Systemic lupus erythematosus, unspecified Category: Medical Qualifiers: Systemic lupus erythematosus organ involvement: other Systemic lupus erythematosus type: unspecified Qualified Code(s): M32.19 - Other organ or system involvement in systemic lupus erythematosus Plan: #SLE Patient is a 49 y.o. female with SLE here today for follow up Stable Will given prednisone 7 pill per month for flare Plan - Hydroxychloroquine 200mg bid - Azathioprine 150mg daily - Prednisone 2.5mg daily prn, 7 pills per month - Labs today: CBC, CMP, ESR, CRP, C3, C4, dsDNA, UA, UPC - RTC 6 months (2) Greater trochanteric bursitis of both hips: Code(s): M70.61 - Trochanteric bursitis, right hip; M70.62 - Trochanteric bursitis, left hip Category: Medical Plan: #Greater trochanteric bursitis Failed exercises Will give steroid injections today Plan - S/p bilateral steroid injection of the bilateral trochanteric bursa (3) Long-term use of hydroxychloroquine: Comment: Eye exam OK 02/03, 10/05, 09/07, 01/07 Code(s): Z79.899 - Other intermodal truck driver (current) drug therapy Category: Medical Plan: #Long-term Use of Hydroxychloroquine Discussed with patient the risks and benefits of hydroxychloroquine in managing the rheumatic condition Benefits include: - Reduced pain, reduce mortality, maintenance of remission and reduction of flares Risks include: - GI upset, skin hyperpigmentation, retinal toxicity (especially after more than 5 years of use), myopathy Advised yearly ophthalmology visits (4) Encounter for monitoring azathioprine therapy: Code(s): Z51.81 - Encounter for therapeutic drug level monitoring; Z79.624 - FDC (current) use of inhibitors of nucleotide synthesis Plan: #Long-term use of azathioprine Discussed with patient the benefits and risks of azathioprine for the management of the rheumatic condition Benefits include: - Reduced pain, maintenance of remission and reduction of flares Risks include: - Bone marrow suppression, GI upset, lymphoma, hepatotoxicity, pancreatitis, hypersensitivity syndrome TPMT enzyme: Drug monitoring: CBC every 4 weeks for the 1st 3 months then CBC BMP LFTs every 3 months Avoid concomitant sulfasalazine, allopurinol or febuxostat Plan I spent 30 minutes reviewing the record and labs, taking a history, examining the patient, discussing the treatment plan, ordering diagnostic work up and documenting in the medical record Orders: Orders AMB Joint Injection/Aspiration Today M70.61 - Trochanteric bursitis, right hip, M70.62 - Trochanteric bursitis, left hip AMB Joint Injection/Aspiration Today M70.61 - Trochanteric bursitis, right hip, M70.62 - Trochanteric bursitis, left hip Medications: Changed From prednisone Take 2 tabs daily for 1 week then 1 tab daily for 1 week then stop 21 tabs 0RF M32.19 - Other organ or system involvement in systemic lupus erythematosus To prednisone 2.5 mg PO DAILY PRN 7 tabs 3RF flares M32.19 - Other organ or system involvement in systemic lupus erythematosus Refilled azathioprine 150 mg (3 x 50 mg) PO DAILY 270 tabs 0RF M32.9 - Systemic lupus erythematosus, unspecified hydroxychloroquine 200 mg PO BID 180 tabs 1RF Coding Level of Care Code Est Pt Level 4 (10951) Complex EM visit Add On G2211 Diagnoses Systemic lupus erythematosus with other organ involvement, unspecified SLE type M32.19 Systemic lupus erythematosus organ involvement: other Systemic lupus erythematosus type: unspecified Greater trochanteric bursitis of both hips M70.61; M70.62 Long-term use of hydroxychloroquine Z79.899 Encounter for monitoring azathioprine therapy Z51.81; Z79.624 CPT Codes Coding - Joint 7: 81261 - Glenohumeral/Tronchanteric Bursa/Intraarticular ([id number]) Coding - Joint 7: 27613 - Glenohumeral/Tronchanteric Bursa/Intraarticular ([id number])
--- OUTSIDE RECORDS SUMMARY | 2025-01-03 11:20 | XMS_ITS | Clinical Summary ---
Author Organization [facility] [address] [facility] l[address] Address [address] [place] [address] Phone Care Team Providers Care Engine Repairer Production Name Role Phone Tiarra Wright MD Primary Care Prov ider Allergies Active Allergy Reactions Criticality Noted Date Comments Amoxicillin 07/26/2024 Amoxicillin Trihydrate Hives 01/09/2010 Amoxicillin-Pot Clavulanate Hives 01/10/20 10 Clindamycin Rash 06/06/2014 All over body Sulfamethoxazole-Trimethoprim Hives 2022 Medications ALPRAZolam (XANAX) 1 mg tablet TAKE 1/2 TABLET BY MOUTH THREE TIMES DAILY NEEDED FOR ANXIETY. 02/15/20 21 Active azaTHIOprine (IMURAN) 50 mg tablet Take 3 Tablets by mouth daily. 06/23/19 23 Active blood glucose control high,low (FreeStyle Control) solution 1 Bottle by In Vitro route See Admin Instructions. 04/22/20 18 Active blood-glucose meter kit 1 Each by Subdermal route as needed (as needed). 02/19/20 23 Active busPIRone (BUSPAR) 15 mg tablet Take 1 Tablet by mouth 2 times daily. 08/06/19 24 Active desvenlafaxine 100 mg tablet extended release 24 hr Take 100 mg by mouth daily. Active fluticasone-sa lmeterol (ADVAIR DISKUS) 250-50 mcg/dose diskus inhaler Inhale 1 Puff into the lungs 2 times daily for 363 days. 11/20/19 24 Active FREESTYLE LANCETS MISC TEST 3 TIMES DAILY. 01/31/20 23 Active gabapentin (NEURONTIN) 300 mg capsule One cap in AM, one cap at 5 PM and two at bedtime 04/07/20 23 Active blood-glucose meter kit 1 Device by Subdermal route as needed for Other. 04/22/20 18 Active hydroxychloroq uine (PLAQUENIL) 200 mg tablet TAKE 2 TABLETS BY MOUTH DAILY 10/16/19 24 Active lamoTRIgine (LaMICtal) 100 mg tablet TAKE 1/2 TABLET BY MOUTH TWICE A DAY 07/03/19 23 Active levonorgestreL (MIRENA) 21 mcg/24hr (up to 8 yrs) 52 mg IUD 1 Each by Intrauterine route Once. 06/19/19 22 027 Active mirtazapine (REMERON) 15 mg tablet TAKE 1 TABLET BY MOUTH EVERYDAY AT BEDTIME 10/22/19 24 Active prazosin (MINIPRESS) 1 mg capsule TAKE 1 CAPSULE BY MOUTH EVERY DAY IN THE MORNING 09/16/19 24 Active miscellaneous medical supply [facility] SPACER DEVICE-ADULT Use with inhaler regularly 10/30/19 22 Active nicotine (Nicotrol) 10 mg inhalerIndicat ions:Tobacco abuse Inhale 1 puff by mouth if needed for smoking cessation. 42 each 2 06/09/19 25 Active Ventolin HFA 90 mcg/actuation inhaler Inhale 2 puffs by mouth every 6 (six) hours if needed for wheezing. 1 each 11 06/20/19 25 026 Active blood sugar diagnostic (FreeStyle Lite Strips) test strip USE 1 TEST STRIPS ONCE DAILY TO CHECK BLOOD SUGAR 100 strip 3 07/04/19 25 Active azithromycin (ZITHROMAX) 250 mg tablet TAKE 2 TABLETS BY MOUTH TODAY, THEN TAKE 1 TABLET DAILY FOR 4 DAYS DIRECTED 05/14/20 24 Active benzonatate (TESSALON) 200 mg capsule Take 1 capsule (200 mg total) by mouth 3 (three) times a day. 05/15/20 24 Active cloNIDine (CATAPRES) 0.1 mg tablet TAKE 1 TABLET BY MOUTH TWICE A DAY NEEDED FOR INSOMNIA/ANXIET Y 06/29/19 25 Active desvenlafaxine succinate (PRISTIQ) 100 mg 24 hr tablet Take 1 tablet (100 mg total) by mouth 1 (one) time each day in the morning. 07/06/19 25 Active fluticasone propionate (FLONASE) 50 mcg/actuation nasal spray Administer 2 sprays into each nostril 1 (one) time each day. 05/15/20 24 Active predniSONE (DELTASONE) 2.5 mg tablet TAKE 2 TABLETS DAILY FOR 1 WEEK THEN 1 TABLET DAILY FOR 1 WEEK 11/13/19 24 Active atorvastatin (LIPITOR) 10 mg tablet TAKE 1 TABLET BY MOUTH EVERY DAY 90 tablet 1 08/11/19 25 Active metFORMIN XR (GLUCOPHAGE-XR ) 500 mg 24 hr tablet TAKE 1 TABLET BY MOUTH EVERY DAY WITH BREAKFAST. Do not crush, chew, or split. 90 tablet 1 08/11/19 25 Active omeprazole (PriLOSEC) [address] capsule TAKE 1 CAPSULE BY MOUTH EVERY DAY. Do not crush or chew. 90 capsule 1 08/11/19 25 Active fluticasone-sa lmeterol (Wixela Inhub) 250-50 mcg/dose diskus inhaler Inhale 1 puff by mouth 2 (two) times a day. Rinse mouth with water after use to reduce aftertaste and incidence of candidiasis. Do not swallow. 1 each 11/29/19 25 026 Active albuterol HFA (Ventolin HFA) 90 mcg/actuation inhaler Inhale 2 puffs by mouth every 6 (six) hours if needed for wheezing. 6.7 g 11/29/19 25 026 Active amLODIPine (NORVASC) 5 mg tablet TAKE 1 TABLET BY MOUTH EVERY DAY 90 tablet 12/21/19 25 Active amLODIPine (NORVASC) 5 mg tablet TAKE 1 TABLET BY MOUTH EVERY DAY 90 tablet 1 06/29/19 25 025 Discontinued Active Problems Problem Noted Date Diagnosed Date Type 2 diabetes mellitus wit hout complication, without long-term current use of insulin ([facility] V24, [facility] V28) 06/09/2024 Tobacco abuse 06/09/2024 Hyperlipidemia 10/14/2022 Primary hypertension 03/11/2022 Dysplasia of cervix, high grade [place] 2 07/03/2021 Overview (04/12/2024): [place] 2/3- needs leep will be scheduled Fibromyalgia 10/31/2020 Long-term use of immunosuppressant medication Cervical radiculopathy at C6 05/03/2019 HGSIL on cytologic smear of cervix 05/28/2017 Overview (04/12/2024): Neg colpo 06/2017- repeat pap in one year 01/27/2020: LSIL/HPV+; colposcopy neg 03/0605/09/21: LSIL/HPV + Gastroesophageal reflux disease without esophagi tis 08/24/2015 Generalized anxiety disorder 01/09/2010 Overview (04/12/2024): [facility] Systemic lupus erythematosus ([facility] V24, [facility] V28) 01/09/2010 Overview (04/12/2024): hydroxychloroquine started ~ 2014 - Eye exam OK 02/03, 10/05 Joint pain/rash. Azathioprine added, 2018 Encounters Date Type Department Care Team Description 11/28/2024 10:45 AM EDT Office Visit Pulmonolgy - [address] [place] [address] Erica Choudhury MD Moderate persistent asthma, unspecified whether complicated (Primary Dx); Ex-smoker from Last 3 Months Immunizations Name Administration Dates Next Due Pneumococcal conjugate 20 va lent (Prevnar 20, PCV 20) 2mo and older 04/07/2023 Td Tetanus diptheria (Tdvax) 7yo and older 03/01 Tdap Tetanus diptheria acell ular pertussis (Boostrix; Adacel) 7yo and older 06/09/2024,06/02/2014 Surgical History Surgery Date Site/Laterality Comments OTHER SURGICAL HISTORY 2018 PROCEDURE: [place] MYOMECTOMY 1-4 MYOMAS W/250 GM/< ABDOMINAL APPR Medical History Medical History Date Comments SLE (systemic lupus erythema tosus related syndrome) ([facility] V24, [facility] V28) DX:SLE (systemic lupus eryth ematosus related syndrome) (HCC) Esophageal reflux DX:Esophageal reflux Diabetes mellitus type 2, co ntrolled ([facility] V24, [facility] V28) 07/13/2014 DX:Diabetes mellitus type 2 , controlled (HCC) Tobacco abuse 10/25/2018 DX:Tobacco abuse Primary hypertension 03/11/2022 Family History Medical History Relation Name Comments No Known Problems Brother No Known Problems Father Breast cancer Father's side p cousin 20s Other: stroke Maternal Grandfather Lung cancer Maternal Grandmother No Known Problems Mother anaphylaxi s from bee sting Heart attack Paternal Grandfather Breast cancer Paternal Grandmother 50s No Known Problems Sister Blindness Neg Hx Cataracts Neg Hx Cervical cancer Neg Hx Colon cancer Neg Hx Coronary artery disease Neg Hx Glaucoma Neg Hx Macular degeneration Neg Hx Ovarian cancer Neg Hx Pancreatic cancer Neg Hx Strabismus Neg Hx Uterine cancer Neg Hx Relation Name Status Comments Brother Alive Father Father's side p cousin 20s Alive cousin Maternal Grandfather (Age 80) Maternal Grandmother Mother (Age 52) Paternal Grandfather Paternal Grandmother 50s Sister Alive Social History Tobacco Use Types Packs/Day Years Used Date Smoking Tobacco: Every Day Cigarettes Smokeless Tobacco: Never Alcohol Use Standard Drinks/Week Comments Yes 0 (1 standard drink = 0.6 oz pur e alcohol) Comments No Sex and Gender Information Value Date Recorded Sex Assigned at Not on file Legal Sex Female 7:31 PM EST Gender Identity Not on file Sexual Orientation Not on file Obstetrics History Para Term AB IAB SAB Ectopic Multiple Livin g Live Births 3 3 3 3 3 Date Outcome GA Total Labor Labor//3rd Weight Sex Type Anes PTL Veronica A1 A5 Name Clin 1997 Term M Vag-S pont Living 1999 Term F Vag-S pont Living 2006 Term F Vag-S pont Living Last Filed Vital Signs Vital Sign Reading Time Taken Comments Blood Pressure 134/68 11/28/2024 11:09 AM EDT Pulse 80 11/28/2024 11:09 AM EDT Temperature 35.7 C (96.3 F) 11/28/2024 11:09 AM EDT Respiratory Rate 15 11/28/2024 11:0 9 AM EDT Oxygen Saturation 96% 11/28/2024 11: 09 AM EDT Inhaled Oxygen Concentration - - Weight 77.9 kg (171 lb 12.8 oz) 025 11:09 AM EDT Height 165.1 cm (5' 5 ) 11/28/2024 11:0 9 AM EDT Body Mass Index 28.59 11/28/2024 11:09 AM EDT Plan of Treatment Upcoming Encounters Date Type Department Care Team (Late st Contact Info) Description 01/13/2025 10:45 AM EDT Office Visit Adult Medicine - [place] [address] [place] [address] [place] Lopez PA [address] [place] [address] 02/17/2025 9:00 AM EDT Appointment Radiology Department - [address] [address] 05/31/2025 10:15 AM EST Office Visit Pulmonolgy - [place] [address] [address] Erica Choudhury MD [address] [facility] [address] [place] [address] Health Maintenance Due Date Last Done Comments COVID-19 Vaccine (#1) 1981 Diabetes: Annual Retina Eye Exam 1986 Hepatitis B Vaccines (1 of 3 - 19+ 3-dose series) 10/25/1995 HIV Screening 04/26/2022 Medicare Annual Wellness Visit 04/26/2022 Social Influencers of Health Screening 04/26/2022 Breast Cancer Screening 08/22/2023 08/22/19, 01/12/2019 Depression Screening 05/18/2024 12/08/2023 Diabetes: Annual Urine Albumin-Creatinine Ratio (uACR) 12/07/2024 12/08/2023 Diabetes: Annual Foot Exam 12/07/2024 12/08/2023 Diabetes: Annual GFR (Glomerular Filtration Rate) 12/07/2024 12/08/2023, 12/08/2023 Diabetes: Blood Sugar Contro l Test (HGBA1C) 12/07/2024 06/09/2024, 12/08/2023, 12/08/2023 Hypertension/CHF/CAD Annual BMP Blood Test 12/07/2024 12/08/2023, 12/08/2023 Influenza Vaccine (#1) 2025 Colorectal Cancer Screening: FIT-DNA (Cologuard) 12/20/2027 12/19/2024 Cholesterol Screening (Lipid Panel) 12/07/2028 12/08/2023, 12/08/2023 Cervical Cancer Screening: HPV 07/26/2029 0 07/26/2024, 07/26/2024, 07/03/2022 DTaP,Tdap,and Td Vaccines (4 - Td or Tdap) 06/09/2034 06/09/2024, 06/02/2014, 03/01/2003 Hepatitis C Screening Completed 03/05/2018 Pneumococcal Vaccine: Pediatrics (0 to 5 Years) and At-Risk Patients (6 to 49 Years) Completed 04/07/2023 HIB Vaccines Aged Out No longer eligi ble based on patient's age to complete this topic HPV Vaccines Aged Out No longer eligi ble based on patient's age to complete this topic Hepatitis A Vaccines Aged Out No long er eligible based on patient's age to complete this topic IPV Vaccines Aged Out No longer eligi ble based on patient's age to complete this topic MMR Vaccines Aged Out No longer eligi ble based on patient's age to complete this topic Meningococcal ACWY Vaccine Aged Out N o longer eligible based on patient's age to complete this topic Meningococcal B Vaccine Aged Out No l onger eligible based on patient's age to complete this topic RSV Immunization Patients Under 20 months Aged Out No longer eligible b ased on patient's age to complete this topic Varicella Vaccines Aged Out No longer eligible based on patient's age to complete this topic Procedures Procedure Name Priority Date/Time Associated Diagnosis Comments LAB COLOGUARD COLON CANCER SCREEN Routine 12/19/2024 5:57 AM EDT Screen for colon cancer HPV WITH REFLEX GENOTYPE Routine 07/26/2024 2:51 PM EDT Encounter for annual physical examination excluding gynecological examination in a patient older than 17 years LGSIL of cervix of undetermined significance HEMOGLOBIN A1C Routine 06/09/2024 10:52 AM EST Type 2 diabetes mellitus without complication, without long-term current use of insulin ([facility] V24, [facility] V28) DEPRESSION SCREENING Routine 12/08/2023 URINE ALBUMIN CREATININE RATIO Routine 12/08/2023 ANNUAL BMP BLOOD TEST Routine 12/08/2023 LIPID PANEL Routine 12/08/2023 DIABETES FOOT EXAM Routine 12/08/2023 SCREENING MAMMOGRAPHY BI 2-VIEW BREAST INC CAD Routine 08/21/2021 3:16 PM EDT Encounter for screening mammogram for malignant neoplasm of breast HEPATITIS C SCREENING Routine 03/05/2018 from Last 3 Months or Most Recently Relevant to Health Maintenance Results * Cologuard?? colon cancer screening (12/19/2024 5:57 AM EDT) COLOGUARD Negative Negative [facility] Comment: The Cologuard (TM) test was performed on this specimen. NEGATIVE TEST RESULT. A negative Cologuard result indicates a low likelihood that a colorectal cancer (CRC) or advanced adenoma (adenomatous polyps with more advanced pre-malignant features) is present. The chance that a person with a negative Cologuard test has a colorectal cancer is less than 1 in 1500 (negative predictive value >99.9%) or has an advanced adenoma is less than 5.3% (negative predictive value 94.7%). These data are based on a prospective cross-sectional study of 10,000 individuals at average risk for colorectal cancer who were screened with both Cologuard and colonoscopy. (Nathalie Vines et al, N Engl J Med 2014;370(14):1286- 1297) The normal value (reference range) for this assay is negative. COLOGUARD RE-SCREENING RECOMMENDATION: Periodic colorectal cancer screening is an important part of preventive healthcare for asymptomatic individuals at average risk for colorectal cancer. Following a negative Cologuard result, the [place] [employer] and U.S. Multi-Society Task Force screening guidelines recommend a Cologuard re-screening interval of 3 years. References: [place] [employer] Guideline for Colorectal Cancer Screening: https://www.cancer.org/cancer/rivkp-jergjq-ytkoyv/wdxdymdqs-lojjevkhe-wrccufb/ac s-rec ommendations.html.; Ervin CHOU, Michael ORTIZ, Zhen AntonioK, Colorectal Cancer Screening: Recommendations for Physicians and Patients from the U.S. Multi-Society Task Force on Colorectal Cancer Screening , Am J Gastroenterology 2017; 112:2661-8007. TEST DESCRIPTION: Composite algorithmic analysis of stool DNA-biomarkers with hemoglobin immunoassay. Quantitative values of individual biomarkers are not reportable and are not associated with individual biomarker result reference ranges. Cologuard is intended for colorectal cancer screening of adults of either sex, 45 years or older, who are at average-risk for colorectal cancer (CRC). Cologuard has been approved for use by the U.S. FDA. The performance of Cologuard was established in a cross sectional study of average-risk adults aged 50-84. Cologuard performance in patients ages 45 to 49 years was estimated by sub-group analysis of near-age groups. Colonoscopies performed for a positive result may find as the most clinically significant lesion: colorectal cancer [4.0%], advanced adenoma (including sessile serrated polyps greater than or equal to 1cm diameter) [20%] or non- advanced adenoma [31%]; or no colorectal neoplasia [45%]. These estimates are derived from a prospective cross-sectional screening study of 10,000 individuals at average risk for colorectal cancer who were screened with both Cologuard and colonoscopy. (Nathalie Andrade. et al, N Engl J Med 2014;370(14):5515-4374.) Cologuard may produce a false negative or false positive result (no colorectal cancer or precancerous polyp present at colonoscopy follow up). A negative Cologuard test result does not guarantee the absence of CRC or advanced adenoma (pre-cancer). The current Cologuard screening interval is every 3 years. ([place] [employer] and U.S. Multi-Society Task Force). Cologuard performance data in a 10,000 patient pivotal study using colonoscopy as the reference method can be accessed at the following location: www.[employer]/results. Additional description of the Cologuard test process, warnings and precautions can be found at www.cologuard.com. Stool 12/19/2024 5:57 AM EDT 12/21/2024 1:35 PM EDT [place] PURCELL [facility] MOLECULAR DIAGNOSTICS ORDE RABLES Final Result Performing Organization Address City/[facility]/ZIP Co de Phone Number [facility] - [address] [place] [address] [facility] [address] [place] [address] * (ABNORMAL) HPV with reflex genotype (07/26/2024 2:51 PM EDT) HPV Positive( A) Negative LAB MICROBIOLOGY METHOD 07/28/2024 3:36 PM EDT [facility] Brushing Cervix uteri structure / Unknown 07/26/2024 2:51 PM EDT 07/27/2024 6:02 AM EDT Kenneth Blair CNM LAB MOLECULAR DIAGNOSTICS ORD ERABLES Final Result Performing Organization Address [facility] de Phone Number [facility] [address] [place] [address], [place] [phone] * Hemoglobin A1c (06/09/2024 10:52 AM EST) Hemoglobin A1C 6.0 <6.5 % LAB CHEMISTRY METHOD 06/09/2024 2:23 PM EST [facility] Mean Bld Glu Estim. 126 mg/dL LAB CHEMISTRY METHOD 06/09/2024 2:23 PM EST [facility] Blood Venous blood specimen / Unknown Venipuncture / Unknown 06/09/2024 10:52 AM EST 06/09/2024 10:52 AM EST [place] PURCELL LAB BLOOD ORDERABLES Final Res ult Performing Organization Address City/[facility]/ZIP Co de Phone Number [facility] [address] [place] [address], [place] [phone] * Urine Albumin Creatinine Ratio (12/08/2023) [facility] Urine Albumin Creatinine Ratio abstracted [facility] HEALTH MAINTENANCE Final Result * Annual BMP Blood Test (12/08/2023) Pathologist [facility] Annual BMP Blood Test abstracted Result [facility] HEALTH MAINTENANCE Final Result * Depression Screening (12/08/2023) [facility] Depression Screening abstracted [facility] HEALTH MAINTENANCE Final Result * Diabetes Foot Exam (12/08/2023) [facility] Diabetes: Annual Foot Exam abstracted Result [facility] HEALTH MAINTENANCE Final Result * (ABNORMAL) [facility]id [facility]12[facility]08[facility]23[facility] LDL[facility]HDL [facility] 3 0 - 4 Triglycerides 151(A) 0 - 150 mg/dL Cholesterol 162 0 - 200 mg/dL HDL 50 >=40 mg/dL LDL Cholesterol 82 0 - 100 mg/dL Blood Venous blood specimen / Unknown Result [facility] LAB BLOOD ORDERABLES Devorah l Result * SCREENING MAMMOGRAPHY BI 2-VIEW BREAST INC CAD (08/21/2021 3:16 PM EDT) Anatomical Region Laterality Modality Radiographic Demetra ging 05/09/2021 8:58 AM EST Narrative 08/22/2021 12:34 PM EDT This is a summary report. The complete report is available in the patient's medical record. If you cannot access the medical record, please contact the sending organization for a detailed fax or copy. Full field digital screening 2D and tomosynthesis mammography, reviewed with CAD and compared to previous. The breast tissue is heterogeneously dense, limiting sensitivity. No suspicious mass, architectural distortion or suspicious calcifications are identified. IMPRESSION: : Dense breast tissue, limiting the sensitivity of mammography. No mammographic evidence of malignancy. BIRADS 1-Negative; N. 5 year breast cancer risk assessment 0.8 % Lifetime breast cancer risk assessment 9.5 % Breast cancer risk category Low (<15%) Procedure Note Nicol Zepeda MD - 05/06/2022 This is a summary report. The complete report is available in thepatient's medical record. If you cannot access the medical record, pleasecontact the sending organization for a detailed fax or copy. Full field digital screening 2D and tomosynthesis mammography, reviewedwith CAD and compared to previous. The breast tissue is heterogeneouslydense, limiting sensitivity. No suspicious mass, architectural distortionor suspicious calcifications are identified. IMPRESSION: : Dense breast tissue, limiting the sensitivity of mammography. Nomammographic evidence of malignancy. BIRADS 1-Negative; N. 5 year breast cancer risk assessment 0.8 % Lifetime breast cancer risk assessment 9.5 % Breast cancer risk category Low (<15%) Jamaal Nuñez CNM IMG XR PROCEDURES Final Result * Hepatitis C Screening (03/05/2018) Hepatitis C Screening abstracted Historical Provider HEALTH MAINTENANCE Final Result from Last 3 Months or Most Recently Relevant to Health Maintenance Insurance [facility] MEDICARE Member Subscriber Plan / Payer (Ef fective 2021-Present) Name:MARGARITA TORRE Relation to Subscriber:Self Name:Margarita Torre Payer ID:[id number] Group ID:[id number] Type:Not on file Address: [address] [id number] Care Teams Engine Repairer Production Relationship Specialty Start Date End Date Tiarra Wright MD PCP - General 04/05/02
--- OUTSIDE RECORDS SUMMARY | 2025-01-03 11:20 | XMS_ITS ---
Author Name [facility] Organization Unknown Care Team Organization Name Specialty Phone Email Start Date End [facility] te [facility] Primary Care 03/25/2022 01/04/2024
== END 2025-01-03 11:00 | disposition home or self-care (01) ==
LOC: HO.RHES 10:06
PROVIDERS: PCP Physician Assistant Medical; Visit Provider Student in an Organized Health Care Education/Training Program
DX: M32.19 Other organ or system involvement in systemic lupus erythematosus (principal); M70.61 Trochanteric bursitis, right hip; M70.62 Trochanteric bursitis, left hip; Z79.899 Other long term (current) drug therapy; Z51.81 Encounter for therapeutic drug level monitoring; Z79.624 Long term (current) use of inhibitors of nucleotide synthesis
CPT/HCPCS: 20610; 99214